=== PATIENT | female | born 1990 | race Caucasian/White ===

== ENCOUNTER 2018-06-07 11:02 | Emergency (ER) | payer OTHER, MEDICAID ==
[~2018-06-07] VITALS: Ht 154.9 cm; Wt 104.3 kg
[2018-06-07 12:20] LABS: ABSOLUTE LYMPHOCYTES 1.8 thou/uL (0.8-5.3); ABSOLUTE MONOCYTES 0.7 thou/uL (0.0-1.2); ABSOLUTE NEUTROPHILS 5.9 thou/uL (1.6-8.1); BASOPHILS 0.5 %; EOSINOPHILS 0.5 %; HEMATOCRIT 40.6 % (37.0-47.0); HEMOGLOBIN 13.4 gm/dL (12.0-15.0); LYMPHOCYTES 21.4 %; MCV 84.9 fL (80.0-100.0); MONOCYTES 8.1 %; MPV 8.7 fl. (7.2-11.1); NUCLEATED RBCS 0 /100WBC; PLATELET COUNT* 282 thou/uL (150-400); POLYS 69.5 %; RBC 4.78 mil/uL (4.20-5.00); RDW-CV 14.3 % (10.5-14.5); WBC 8.4 thou/uL (4.0-11.0)
[2018-06-07 12:24] LABS: URINE BILIRUBIN NEGATIVE (Negative); URINE BLOOD TRACE (Negative); URINE CLARITY CLEAR; URINE COLOR YELLOW; URINE GLUCOSE-RANDOM NEGATIVE (Negative); URINE KETONES NEGATIVE (Negative); URINE LEUKOCYTES-REFLEX NEGATIVE (Negative); URINE NITRITE-REFLEX NEGATIVE (Negative); URINE PROTEIN NEGATIVE (Negative); URINE UROBILINOGEN 0.2 E.U./dl (0.2-1.0)
[2018-06-07 12:44] LABS: CALCIUM 9.5 mg/dL (8.5-10.1); CREATININE 0.7 mg/dL (0.6-1.3); POTASSIUM 3.7 mmol/L (3.5-5.1)
[2018-06-07 14:50] VITALS: BP 109/56
== END 2018-06-07 14:54 | disposition home or self-care (01) ==
LOC: M.ERS 11:02
PROVIDERS: Nurse Practitioner Family
DX: O23.591 Infection of other part of genital tract in pregnancy, first trimester (principal); Z3A.10 10 weeks gestation of pregnancy; N72 Inflammatory disease of cervix uteri; Z88.1 Allergy status to other antibiotic agents

== ENCOUNTER 2018-07-31 09:33 | Emergency (ER) | payer OTHER, MEDICAID ==
[~2018-07-31] VITALS: Ht 154.9 cm; Wt 104.3 kg
[2018-07-31] MEDS ORDERED: MOBIC15 MG PO (10:28)
[2018-07-31] MEDS ORDERED: MEDROL DOSPAK21 TA1 PO (10:28)
[2018-07-31 10:52] VITALS: BP 135/81
== END 2018-07-31 10:51 | disposition home or self-care (01) ==
LOC: M.ERS 09:33
DX: M72.2 Plantar fascial fibromatosis (principal); Z88.1 Allergy status to other antibiotic agents

== ENCOUNTER 2018-10-29 11:59 | Emergency (ER) | payer OTHER, MEDICAID ==
[~2018-10-29] VITALS: Ht 154.9 cm; Wt 113.4 kg
[~2018-10-29 11:59] MED LIST: MEDROL DOSPAK21 TA1 PO; MOBIC15 MG PO
[2018-10-29 12:48] VITALS: BP 119/74
== END 2018-10-29 12:49 | disposition home or self-care (01) ==
LOC: M.ERS 11:59
DX: N76.0 Acute vaginitis (principal); Z88.1 Allergy status to other antibiotic agents

== ENCOUNTER 2018-12-16 21:29 | Emergency (ER) | payer OTHER, MEDICAID ==
[~2018-12-16] VITALS: Ht 154.9 cm; Wt 117.9 kg
[2018-12-16 21:53] LABS: URINE BILIRUBIN NEGATIVE (Negative); URINE BLOOD NEGATIVE (Negative); URINE CLARITY CLEAR; URINE COLOR YELLOW; URINE GLUCOSE-RANDOM NEGATIVE (Negative); URINE KETONES NEGATIVE (Negative); URINE LEUKOCYTES-REFLEX NEGATIVE (Negative); URINE NITRITE-REFLEX NEGATIVE (Negative); URINE PROTEIN NEGATIVE (Negative); URINE UROBILINOGEN 0.2 E.U./dl (0.2-1.0)
[2018-12-16 22:02] LABS: AMP/METHAMP Negative (Negative); BARBITURATES Negative (Negative); BENZODIAZEPINES Negative (Negative); COCAINE Negative (Negative); METHADONE Negative (Negative); OPIATES Negative (Negative); PCP Negative (Negative); THC Negative (Negative)
[2018-12-16 22:07] LABS: ABSOLUTE BASOPHILS 0.1 thou/uL (0.0-0.2); ABSOLUTE EOSINOPHILS 0.1 thou/uL (0.0-0.7); ABSOLUTE LYMPHOCYTES 2.1 thou/uL (0.8-5.3); ABSOLUTE MONOCYTES 0.9 thou/uL (0.0-1.2); BASOPHILS 0.7 %; EOSINOPHILS 1.6 %; HEMATOCRIT 39.4 % (37.0-47.0); HEMOGLOBIN 12.9 gm/dL (12.0-15.0); LYMPHOCYTES 26.2 %; MCH 27.5 pg (26.0-34.0); MCHC 32.8 g/dL (28.0-37.0); MCV 83.7 fL (80.0-100.0); MONOCYTES 10.6 %; MPV 8.5 fl. (7.2-11.1); NUCLEATED RBCS 0 /100WBC; PLATELET COUNT* 287 thou/uL (150-400); POLYS 60.9 %; RDW-CV 13.9 % (10.5-14.5); WBC 8.1 thou/uL (4.0-11.0)
[2018-12-16 22:24] LABS: CALCIUM 8.4 mg/dL (8.5-10.1); CREATININE 0.9 mg/dL (0.6-1.3)
[2018-12-16 22:28] LABS: TOTAL BILIRUBIN 0.2 mg/dL (<0.1-1.0); TOTAL PROTEIN 6.9 g/dL (6.4-8.2)
[2018-12-17 00:49] VITALS: BP 110/72
== END 2018-12-17 00:51 | disposition home or self-care (01) ==
LOC: M.ERS 21:29
PROVIDERS: Emergency Medicine
DX: R10.31 Right lower quadrant pain (principal); R10.32 Left lower quadrant pain; M72.2 Plantar fascial fibromatosis; Z88.1 Allergy status to other antibiotic agents

== ENCOUNTER 2019-04-05 10:12 | Emergency (ER) | payer OTHER, MEDICAID ==
[~2019-04-05] VITALS: Ht 154.9 cm; Wt 106.6 kg
[2019-04-05 10:50] LABS: URINE BILIRUBIN NEGATIVE (Negative); URINE BLOOD NEGATIVE (Negative); URINE CLARITY CLEAR; URINE COLOR YELLOW; URINE GLUCOSE-RANDOM NEGATIVE (Negative); URINE KETONES NEGATIVE (Negative); URINE LEUKOCYTES-REFLEX NEGATIVE (Negative); URINE NITRITE-REFLEX NEGATIVE (Negative); URINE PROTEIN NEGATIVE (Negative); URINE UROBILINOGEN 0.2 E.U./dl (0.2-1.0)
[2019-04-05 10:55] LABS: ABSOLUTE EOSINOPHILS 0.1 thou/uL (0.0-0.7); ABSOLUTE LYMPHOCYTES 1.6 thou/uL (0.8-5.3); ABSOLUTE MONOCYTES 0.4 thou/uL (0.0-1.2); ABSOLUTE NEUTROPHILS 2.8 thou/uL (1.6-8.1); BASOPHILS 0.6 %; EOSINOPHILS 1.5 %; HEMATOCRIT 40.4 % (37.0-47.0); HEMOGLOBIN 13.9 gm/dL (12.0-15.0); LYMPHOCYTES 32.5 %; MCHC 34.4 g/dL (28.0-37.0); MCV 84.3 fL (80.0-100.0); MPV 8.6 fl. (7.2-11.1); NUCLEATED RBCS 0 /100WBC; PLATELET COUNT* 258 thou/uL (150-400); POLYS 56.4 %; RBC 4.79 mil/uL (4.20-5.00); RDW-CV 14.1 % (10.5-14.5); WBC 4.9 thou/uL (4.0-11.0)
[2019-04-05 11:00] LABS: ANION GAP 8 mmol/L (7-16); BUN 7 mg/dL (7-18); CALCIUM 8.7 mg/dL (8.5-10.1); CHLORIDE 104 mmol/L (98-107); CO2 27 mmol/L (21-32); CREATININE 0.8 mg/dL (0.6-1.3); GLUCOSE 94 mg/dL (70-99); POTASSIUM 3.9 mmol/L (3.5-5.1); SODIUM 139 mmol/L (136-145)
[2019-04-05 11:13] LABS: ALBUMIN 3.4 g/dL (3.4-5.0); ALKALINE PHOSPHATASE 60 U/L (46-116); LIPASE 153 U/L (73-393); SGOT 19 U/L (15-37); SGPT 25 U/L (30-65); TOTAL BILIRUBIN 0.2 mg/dL (<0.1-1.0); TOTAL PROTEIN 7.3 g/dL (6.4-8.2); TROPONIN-I LEVEL <0.06 ng/mL (<0.06)
[2019-04-05] MEDS ORDERED: ZOFRAN ODT4 MG DISSOLVE (13:27)
[2019-04-05] MEDS ORDERED: NORCO 5-325 TA1 EAC1 PO (13:27)
[2019-04-05 13:58] VITALS: BP 128/88
--- NOTE | 2019-04-05 14:15 | EKG ---
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
== END 2019-04-05 14:00 | disposition home or self-care (01) ==
LOC: M.ERS 10:12
PROVIDERS: Emergency Medicine Emergency Medical Services
DX: R10.84 Generalized abdominal pain (principal); Z88.1 Allergy status to other antibiotic agents

== ENCOUNTER 2019-04-14 13:19 | Emergency (ER) | payer OTHER, MEDICAID ==
[~2019-04-14] VITALS: Ht 154.9 cm; Wt 104.3 kg
[~2019-04-14 13:19] MED LIST changes: +NORCO 5-325 TA1 EAC1 PO; +ZOFRAN ODT4 MG DISSOLVE
[2019-04-14 14:17] LABS: ABSOLUTE EOSINOPHILS 0.1 thou/uL (0.0-0.7); ABSOLUTE LYMPHOCYTES 1.9 thou/uL (0.8-5.3); ABSOLUTE MONOCYTES 0.7 thou/uL (0.0-1.2); ABSOLUTE NEUTROPHILS 4.3 thou/uL (1.6-8.1); BASOPHILS 0.6 %; EOSINOPHILS 0.8 %; HEMATOCRIT 40.2 % (37.0-47.0); HEMOGLOBIN 13.5 gm/dL (12.0-15.0); LYMPHOCYTES 27.8 %; MCH 28.4 pg (26.0-34.0); MCHC 33.7 g/dL (28.0-37.0); MCV 84.4 fL (80.0-100.0); MONOCYTES 9.8 %; MPV 8.4 fl. (7.2-11.1); NUCLEATED RBCS 0 /100WBC; PLATELET COUNT* 295 thou/uL (150-400); RBC 4.76 mil/uL (4.20-5.00); RDW-CV 13.9 % (10.5-14.5)
[2019-04-14 14:23] LABS: CALCIUM 8.9 mg/dL (8.5-10.1); CREATININE 0.9 mg/dL (0.6-1.3); POTASSIUM 3.8 mmol/L (3.5-5.1)
[2019-04-14 14:28] LABS: ALBUMIN 3.5 g/dL (3.4-5.0); TOTAL BILIRUBIN 0.3 mg/dL (<0.1-1.0); TOTAL PROTEIN 7.6 g/dL (6.4-8.2)
[2019-04-14 15:16] LABS: URINE BILIRUBIN NEGATIVE (Negative); URINE BLOOD NEGATIVE (Negative); URINE COLOR YELLOW; URINE GLUCOSE-RANDOM NEGATIVE (Negative); URINE KETONES NEGATIVE (Negative); URINE LEUKOCYTES-REFLEX NEGATIVE (Negative); URINE NITRITE-REFLEX NEGATIVE (Negative); URINE PROTEIN TRACE (Negative); URINE SPECIFIC GRAVITY 1.015 (1.005-1.030); URINE UROBILINOGEN 0.2 E.U./dl (0.2-1.0)
[2019-04-14 15:17] LABS: URINE CLARITY CLEAR
[2019-04-14] MEDS ORDERED: ZOFRAN ODT4 MG PO (15:19)
[2019-04-14] MEDS ORDERED: TYLENOL WITH CO1 TA1 PO (15:19)
[2019-04-14 15:27] VITALS: BP 103/76
== END 2019-04-14 15:28 | disposition home or self-care (01) ==
LOC: M.ERS 13:19
PROVIDERS: Nurse Practitioner Family
DX: R10.30 Lower abdominal pain, unspecified (principal); R74.8 Abnormal levels of other serum enzymes; Z88.1 Allergy status to other antibiotic agents

== ENCOUNTER 2019-05-17 17:18 | Emergency (ER) | payer OTHER, MEDICAID ==
[~2019-05-17] VITALS: Ht 154.9 cm; Wt 106.6 kg
[~2019-05-17 17:18] MED LIST changes: +TYLENOL WITH CO1 TA1 PO; +ZOFRAN ODT4 MG PO
[2019-05-17 18:23] LABS: URINE BILIRUBIN NEGATIVE (Negative); URINE BLOOD NEGATIVE (Negative); URINE CLARITY CLEAR; URINE COLOR YELLOW; URINE GLUCOSE-RANDOM NEGATIVE (Negative); URINE KETONES NEGATIVE (Negative); URINE LEUKOCYTES-REFLEX NEGATIVE (Negative); URINE NITRITE-REFLEX NEGATIVE (Negative); URINE PROTEIN NEGATIVE (Negative); URINE SPECIFIC GRAVITY 1.025 (1.005-1.030); URINE UROBILINOGEN 0.2 E.U./dl (0.2-1.0)
[2019-05-17 18:50] LABS: ABSOLUTE BASOPHILS 0.1 thou/uL (0.0-0.2); ABSOLUTE EOSINOPHILS 0.1 thou/uL (0.0-0.7); ABSOLUTE LYMPHOCYTES 1.9 thou/uL (0.8-5.3); ABSOLUTE MONOCYTES 0.8 thou/uL (0.0-1.2); ABSOLUTE NEUTROPHILS 6.7 thou/uL (1.6-8.1); BASOPHILS 0.7 %; EOSINOPHILS 1.1 %; HEMATOCRIT 39.2 % (37.0-47.0); HEMOGLOBIN 13.4 gm/dL (12.0-15.0); LYMPHOCYTES 20.1 %; MCH 28.9 pg (26.0-34.0); MCHC 34.1 g/dL (28.0-37.0); MCV 84.7 fL (80.0-100.0); MONOCYTES 8.3 %; MPV 8.6 fl. (7.2-11.1); NUCLEATED RBCS 0 /100WBC; PLATELET COUNT* 307 thou/uL (150-400); POLYS 69.8 %; RBC 4.63 mil/uL (4.20-5.00); RDW-CV 13.8 % (10.5-14.5); WBC 9.6 thou/uL (4.0-11.0)
[2019-05-17 19:01] LABS: CALCIUM 8.9 mg/dL (8.5-10.1)
[2019-05-17 19:05] LABS: ALBUMIN 3.3 g/dL (3.4-5.0); TOTAL BILIRUBIN 0.1 mg/dL (<0.1-1.0); TOTAL PROTEIN 7.3 g/dL (6.4-8.2)
[2019-05-17] MEDS ORDERED: NABUMETONE 750750 M1 PO (22:05)
[2019-05-17] MEDS ORDERED: NORCO 5-325 TA1 EAC1 PO (22:05)
[2019-05-17] MEDS ORDERED: ZANAFLEX4 MG PO (22:05)
[2019-05-18 00:33] VITALS: BP 119/57
--- NOTE | 2019-05-18 11:42 | EKG ---
[place] [address] ELECTROCARDIOGRAM REPORT Name: MARYELVIALICIA MEJIA [id number] Admission: 05/17/19 Attend Phys: Discharge: 05/18/19 Date of : [birth year] Report #: [id number] THIS REPORT FOR: //name// [facility] ED Test Date: 2019-05-17 Test Time: 17:33:12 Pat Name: CEASAR HERNANDEZ Department: Room: Gender: F [employer]xtures: : 1990 Requested By: Taty James Order Number: [id number] MD: Luis Mcduffie Measurements Intervals [place] Rate: 99 P: 56 OR: 151 QRS: 61 QRSD: 92 T: 8 QT: 336 QTc: 432 Interpretive Statements Sinus rhythm Compared to ECG 04/05/2019 11:09:08 No significant changes Electronically Signed On 05-18-2019 11:42:33 NUTRITION SERVICES ASSISTANT by Luis Mcduffie [email or web address] <ELECTRONICALLY SIGNED> By: Doug Mcduffie MD, [facility] 05/18/19 1142 1733 1733 Doug Mcduffie MD, FACC /EPI
== END 2019-05-18 00:34 | disposition home or self-care (01) ==
LOC: M.ERS 17:18
PROVIDERS: Nurse Practitioner Family
DX: M54.6 Pain in thoracic spine (principal); R07.89 Other chest pain; R00.0 Tachycardia, unspecified; Z88.1 Allergy status to other antibiotic agents

== ENCOUNTER 2019-07-17 11:42 | Emergency (ER) | payer OTHER, MEDICAID ==
[~2019-07-17] VITALS: Ht 154.9 cm; Wt 106.6 kg
[~2019-07-17 11:42] MED LIST changes: +NABUMETONE 750750 M1 PO; +ZANAFLEX4 MG PO
[2019-07-17 12:10] LABS: INFLUENZA A ANTIGEN Negative (Negative)
[2019-07-17] MEDS ORDERED: TAMIFLU75 MG PO (13:41)
[2019-07-17] MEDS ORDERED: TESSALON PERLE100 MG PO (13:41)
[2019-07-17] MEDS ORDERED: ONDANSETRON HCL4 M3 PO (13:41)
[2019-07-17] MEDS ORDERED: TYLENOL WITH CO1 TA1 PO (13:41)
[2019-07-17 13:52] VITALS: BP 122/73
== END 2019-07-17 13:55 | disposition home or self-care (01) ==
LOC: M.ERS 11:42
PROVIDERS: Physician Assistant
DX: J10.1 Influenza due to other identified influenza virus with other respiratory manifestations (principal); Z88.1 Allergy status to other antibiotic agents

== ENCOUNTER 2019-10-21 16:31 | Emergency (ER) | payer OTHER, MEDICAID ==
[~2019-10-21] VITALS: Ht 142.2 cm; Wt 99.8 kg
[~2019-10-21 16:31] MED LIST changes: +ONDANSETRON HCL4 M3 PO; +TAMIFLU75 MG PO; +TESSALON PERLE100 MG PO
[2019-10-21 17:01] LABS: URINE BILIRUBIN NEGATIVE (Negative); URINE BLOOD TRACE (Negative); URINE CLARITY CLEAR; URINE COLOR YELLOW; URINE GLUCOSE-RANDOM NEGATIVE (Negative); URINE KETONES NEGATIVE (Negative); URINE LEUKOCYTES-REFLEX NEGATIVE (Negative); URINE NITRITE-REFLEX NEGATIVE (Negative); URINE PROTEIN NEGATIVE (Negative); URINE UROBILINOGEN 0.2 E.U./dl (0.2-1.0)
[2019-10-21 17:29] LABS: ABSOLUTE BASOPHILS 0.1 thou/uL (0.0-0.2); ABSOLUTE EOSINOPHILS 0.1 thou/uL (0.0-0.7); ABSOLUTE LYMPHOCYTES 2.4 thou/uL (0.8-5.3); ABSOLUTE MONOCYTES 0.6 thou/uL (0.0-1.2); ABSOLUTE NEUTROPHILS 4.8 thou/uL (1.6-8.1); BASOPHILS 0.9 %; EOSINOPHILS 1.7 %; HEMATOCRIT 40.1 % (37.0-47.0); HEMOGLOBIN 13.5 gm/dL (12.0-15.0); LYMPHOCYTES 30.3 %; MCH 28.6 pg (26.0-34.0); MCHC 33.6 g/dL (28.0-37.0); MCV 85.1 fL (80.0-100.0); MONOCYTES 7.3 %; MPV 8.5 fl. (7.2-11.1); NUCLEATED RBCS 0 /100WBC; PLATELET COUNT* 246 thou/uL (150-400); POLYS 59.8 %; RBC 4.71 mil/uL (4.20-5.00); RDW-CV 13.6 % (10.5-14.5)
[2019-10-21 17:45] LABS: CALCIUM 8.4 mg/dL (8.5-10.1); CREATININE 0.8 mg/dL (0.6-1.3); POTASSIUM 4.4 mmol/L (3.5-5.1)
[2019-10-21 17:50] LABS: ALBUMIN 3.4 g/dL (3.4-5.0); TOTAL BILIRUBIN 0.3 mg/dL (<0.1-1.0); TOTAL PROTEIN 7.3 g/dL (6.4-8.2)
[2019-10-21] MEDS ORDERED: NAPROSYN500 MG PO (19:24)
[2019-10-21] MEDS ORDERED: CITRATE OF MAG296 M1 PO (19:24)
[2019-10-21 19:35] VITALS: BP 125/74
--- NOTE | 2019-10-22 11:01 | EKG ---
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
== END 2019-10-21 19:36 | disposition home or self-care (01) ==
LOC: M.ERS 16:31
PROVIDERS: Nurse Practitioner Family
DX: K59.00 Constipation, unspecified (principal); Z88.1 Allergy status to other antibiotic agents

== ENCOUNTER 2019-12-11 15:58 | Emergency (ER) | payer OTHER, MEDICAID ==
[~2019-12-11] VITALS: Ht 154.9 cm; Wt 106.6 kg
[~2019-12-11 15:58] MED LIST changes: +CITRATE OF MAG296 M1 PO; +NAPROSYN500 MG PO
[2019-12-11] MEDS ORDERED: BUTALB-APAP-CA1 EACH PO (17:29)
[2019-12-11 17:51] VITALS: BP 118/71
== END 2019-12-11 17:52 | disposition home or self-care (01) ==
LOC: M.ERS 15:58
DX: S16.1XXA Strain of muscle, fascia and tendon at neck level, initial encounter (principal); T24.112A Burn of first degree of left thigh, initial encounter; T31.0 Burns involving less than 10% of body surface; R51 Headache; Z88.1 Allergy status to other antibiotic agents; W20.8XXA Other cause of strike by thrown, projected or falling object, initial encounter; X19.XXXA Contact with other heat and hot substances, initial encounter; Y93.89 Activity, other specified; Y92.89 Other specified places as the place of occurrence of the external cause; Y99.8 Other external cause status

== ENCOUNTER 2019-12-23 20:14 | Emergency (ER) | payer OTHER, MEDICAID ==
[~2019-12-23] VITALS: Ht 154.9 cm; Wt 106.6 kg
[~2019-12-23 20:14] MED LIST changes: +BUTALB-APAP-CA1 EACH PO
[2019-12-23 22:03] LABS: URINE BILIRUBIN NEGATIVE (Negative); URINE BLOOD NEGATIVE (Negative); URINE CLARITY CLEAR; URINE COLOR YELLOW; URINE GLUCOSE-RANDOM NEGATIVE (Negative); URINE KETONES NEGATIVE (Negative); URINE LEUKOCYTES-REFLEX NEGATIVE (Negative); URINE NITRITE-REFLEX NEGATIVE (Negative); URINE PROTEIN NEGATIVE (Negative); URINE UROBILINOGEN 0.2 E.U./dl (0.2-1.0)
[2019-12-23] MEDS ORDERED: FLAGYL500 M1 PO (23:17)
[2019-12-23] MEDS ORDERED: DIFLUCAN150 MG PO (23:17)
[2019-12-23 23:26] VITALS: BP 134/96
== END 2019-12-23 23:27 | disposition home or self-care (01) ==
LOC: M.ERS 20:14
PROVIDERS: Emergency Medicine
DX: N89.8 Other specified noninflammatory disorders of vagina (principal); R10.2 Pelvic and perineal pain; Z88.1 Allergy status to other antibiotic agents

== ENCOUNTER 2020-03-27 11:04 | Emergency (ER) | payer OTHER, MEDICAID ==
[~2020-03-27] VITALS: Ht 162.6 cm; Wt 108.9 kg
[~2020-03-27 11:04] MED LIST changes: +DIFLUCAN150 MG PO; +FLAGYL500 M1 PO
[2020-03-27 12:00] LABS: URINE BILIRUBIN NEGATIVE (Negative); URINE BLOOD 1+ (Negative); URINE CLARITY CLEAR; URINE COLOR YELLOW; URINE GLUCOSE-RANDOM NEGATIVE (Negative); URINE KETONES NEGATIVE (Negative); URINE LEUKOCYTES-REFLEX NEGATIVE (Negative); URINE NITRITE-REFLEX NEGATIVE (Negative); URINE PROTEIN NEGATIVE (Negative); URINE SPECIFIC GRAVITY >= 1.030 (1.005-1.030); URINE UROBILINOGEN 0.2 E.U./dl (0.2-1.0)
[2020-03-27 12:03] LABS: ABSOLUTE EOSINOPHILS 0.2 thou/uL (0.0-0.7); ABSOLUTE LYMPHOCYTES 1.7 thou/uL (0.8-5.3); ABSOLUTE MONOCYTES 0.6 thou/uL (0.0-1.2); BASOPHILS 0.7 %; EOSINOPHILS 2.5 %; HEMATOCRIT 39.8 % (37.0-47.0); HEMOGLOBIN 13.8 gm/dL (12.0-15.0); LYMPHOCYTES 26.3 %; MCH 29.5 pg (26.0-34.0); MCHC 34.6 g/dL (28.0-37.0); MCV 85.2 fL (80.0-100.0); MONOCYTES 8.9 %; NUCLEATED RBCS 0 /100WBC; PLATELET COUNT* 265 thou/uL (150-400); POLYS 61.6 %; RBC 4.67 mil/uL (4.20-5.00); RDW-CV 13.3 % (10.5-14.5); WBC 6.5 thou/uL (4.0-11.0)
[2020-03-27 12:07] LABS: CALCIUM 8.9 mg/dL (8.5-10.1); POTASSIUM 3.9 mmol/L (3.5-5.1)
[2020-03-27 12:11] LABS: SQUAMOUS >10 Many /LPF (0-3)
[2020-03-27 12:12] LABS: ALBUMIN 3.1 g/dL (3.4-5.0); TOTAL BILIRUBIN 0.3 mg/dL (<0.1-1.0); TOTAL PROTEIN 7.2 g/dL (6.4-8.2)
[2020-03-27 12:12] LABS: BACTERIA-REFLEX >30 Many /HPF (None Seen); CASTS None Seen /LPF (None Seen); MUCUS None Seen strn/LPF (None Seen); URINE RBC 3-10 Few /HPF (0-2); URINE WBC-REFLEX None Seen /HPF (0-5)
[2020-03-27 12:15] LABS: CALCIUM OXALATE 0-3 Few /LPF (None Seen); CRYSTALS ND /LPF (None Seen)
[2020-03-27] MEDS ORDERED: KEFLEX500 M1 PO (12:19)
[2020-03-27 12:42] VITALS: BP 138/75
== END 2020-03-27 12:43 | disposition home or self-care (01) ==
LOC: M.ERS 11:04
PROVIDERS: Emergency Medicine Emergency Medical Services
DX: N39.0 Urinary tract infection, site not specified (principal); Z88.1 Allergy status to other antibiotic agents

== ENCOUNTER 2020-09-04 09:02 | Emergency (ER) | payer OTHER, MEDICAID ==
[~2020-09-04] VITALS: Ht 154.9 cm; Wt 119.3 kg
[~2020-09-04 09:02] MED LIST changes: +HYDROCODON-ACE1 EAC7 PO; +KEFLEX500 M1 PO; +TORADOL 10 MG T10 MG PO
[2020-09-04] MEDS ORDERED: SPRINTEC1 EACH PO (09:25)
[2020-09-04 09:27] LABS: URINE BILIRUBIN NEGATIVE (Negative); URINE BLOOD 3+ (Negative); URINE CLARITY CLEAR; URINE COLOR OTHER; URINE GLUCOSE-RANDOM NEGATIVE (Negative); URINE KETONES NEGATIVE (Negative); URINE LEUKOCYTES-REFLEX TRACE (Negative); URINE NITRITE-REFLEX NEGATIVE (Negative); URINE PROTEIN TRACE (Negative); URINE SPECIFIC GRAVITY <= 1.005 (1.005-1.030); URINE UROBILINOGEN 0.2 E.U./dl (0.2-1.0)
[2020-09-04 09:43] LABS: SQUAMOUS 0-3 Few /LPF (0-3)
[2020-09-04 09:44] LABS: BACTERIA-REFLEX 1-9 Few /HPF (None Seen); CASTS None Seen /LPF (None Seen); CRYSTALS None Seen /LPF (None Seen); URINE RBC >20 Many /HPF (0-2); URINE WBC-REFLEX 0-5 Rare /HPF (0-5)
[2020-09-04 09:45] LABS: ABSOLUTE BASOPHILS 0.1 thou/uL (0.0-0.2); ABSOLUTE EOSINOPHILS 0.2 thou/uL (0.0-0.7); ABSOLUTE LYMPHOCYTES 1.7 thou/uL (0.8-5.3); ABSOLUTE MONOCYTES 0.7 thou/uL (0.0-1.2); EOSINOPHILS 3.1 %; HEMATOCRIT 40.4 % (37.0-47.0); HEMOGLOBIN 13.4 gm/dL (12.0-15.0); LYMPHOCYTES 25.7 %; MCH 27.7 pg (26.0-34.0); MCHC 33.2 g/dL (28.0-37.0); MCV 83.6 fL (80.0-100.0); MONOCYTES 10.2 %; MPV 8.1 fl. (7.2-11.1); NUCLEATED RBCS 0 /100WBC; PLATELET COUNT* 274 thou/uL (150-400); RBC 4.84 mil/uL (4.20-5.00); RDW-CV 13.6 % (10.5-14.5); WBC 6.7 thou/uL (4.0-11.0)
[2020-09-04 09:52] LABS: CALCIUM 8.8 mg/dL (8.5-10.1); CREATININE 0.9 mg/dL (0.6-1.3)
[2020-09-04 09:58] LABS: TOTAL BILIRUBIN 0.2 mg/dL (<0.1-1.0)
[2020-09-04] MEDS ORDERED: ZOFRAN ODT4 MG DISSOLVE (10:38)
[2020-09-04] MEDS ORDERED: TRAMADOL 50 MG50 MG PO (10:38)
[2020-09-04 10:53] VITALS: BP 92/48
== END 2020-09-04 10:55 | disposition home or self-care (01) ==
LOC: M.ERS 09:02
PROVIDERS: Family Medicine
DX: R10.31 Right lower quadrant pain (principal); R19.7 Diarrhea, unspecified; Z88.1 Allergy status to other antibiotic agents

== ENCOUNTER 2021-03-30 14:49 | Emergency (ER) | payer OTHER, MEDICAID ==
[~2021-03-30] VITALS: Ht 154.9 cm; Wt 117.9 kg
[~2021-03-30 14:49] MED LIST changes: +SPRINTEC1 EACH PO; +TRAMADOL 50 MG50 MG PO
[2021-03-30] MEDS ORDERED: NEURONTIN 300M300 M2 PO (15:02)
[2021-03-30] MEDS ORDERED: TRAMADOL 50 MG50 MG PO (15:02)
[2021-03-30] MEDS ORDERED: MELOXICAM15 MG PO (15:02)
[2021-03-30] MEDS ORDERED: OXYCODONE PO (15:02)
[2021-03-30 15:16] LABS: URINE BILIRUBIN NEGATIVE (Negative); URINE BLOOD NEGATIVE (Negative); URINE CLARITY CLEAR; URINE COLOR YELLOW; URINE GLUCOSE-RANDOM NEGATIVE (Negative); URINE KETONES NEGATIVE (Negative); URINE LEUKOCYTES NEGATIVE (Negative); URINE NITRITE NEGATIVE (Negative); URINE PROTEIN NEGATIVE (Negative); URINE UROBILINOGEN 0.2 E.U./dl (0.2-1.0)
[2021-03-30] MEDS ORDERED: DOXYCYCLINE 10100 MG PO (16:53)
[2021-03-30] MEDS ORDERED: FLAGYL500 M1 PO (16:53)
[2021-03-30 17:00] VITALS: BP 139/79
== END 2021-03-30 17:01 | disposition home or self-care (01) ==
LOC: M.ERS 14:49
PROVIDERS: Emergency Medicine
DX: N89.8 Other specified noninflammatory disorders of vagina (principal); Z79.899 Other long term (current) drug therapy; Z88.1 Allergy status to other antibiotic agents